=== PATIENT | male | born 1995 | race Caucasian/White ===

== ENCOUNTER 2016-11-15 20:16 | Emergency (ER) | payer SELFPAY ==
[~2016-11-15] VITALS: Ht 185.4 cm; Wt 70.0 kg
[~2016-11-15 20:16] MED LIST: ADDE10 PO; ADDE20 PO; PROP20TA3 PO
[2016-11-15 20:28] VITALS: BP 146/98; PULSE 88; RESP 16; TEMP 98; O2SAT 98
[2016-11-15 23:15] VITALS: BP 142/68; PULSE 75; RESP 18; TEMP 97.5; O2SAT 100
--- NOTE | 2016-11-15 23:34 | PD ---
HPI Chief Complaint: Psychiatric Symptoms Time Seen by Provider: 22:45 Travel History International Travel<30 days: No Contact w/Intl Traveler<30days: No History of Present Illness HPI Pleasant 20-year-old male arrives with several nonspecific neurologic and/or psychiatric complaints and demonstrates concern for having suffered a stroke. The patient suddenly had difficulty speaking well giving a presentation before students in a class. Yesterday he tried to complete the assignment and "couldn' t think." He also reports numbness about the nose. He states he is in the high stress environment right now experiencing some bullying in college. He is a senior at in [address]. His plans after graduation or indeterminate at this time. He has been taking albuterol 20 mg extended release and increased his dose to 10 mg extra in the afternoons lately. He had been taking benzodiazepines intermittently until 2 weeks prior. He takes propranolol for hypertension. Past medical history includes panic disorder, ADHD and major depressive disorder. He denies binge drinking however reports occasional alcohol consumption. He reports occasional marijuana use. He's had no loss of consciousness. He's had no focal neurologic deficit. He has no headache. PFSH Past Medical History ADHD: Yes Asthma: Yes (CHILDHOOD) Depression: Yes Diminished Hearing: No Hypertension: Yes Immunizations Current: Yes Social History Alcohol Use: No Tobacco Use: No Substance Use: Yes (MARIJUANA "2XWEEK") Allergies-Medications (Allergen,Severity, Reaction): Coded Allergies: Cephalosporins (Verified Allergy, Severe, 09/19/16) Reported Meds & Prescriptions Reported Meds & Active Scripts Active Adderall (Amphetamine-Dextroamphetamine) 20 Mg Tab 20 Mg PO QAM,1/2Q4PM disp; jan 11 2017 Avoid late evening doses. Space doses at least 4 to 6 hours if more than once/day dosing. Adderall (Amphetamine-Dextroamphetamine) 20 Mg Tab 20 Mg PO QAM,1/2Q4PM disp; december 12 2016 Avoid late evening doses. Space doses at least 4 to 6 hours if more than once/day dosing. Adderall (Amphetamine-Dextroamphetamine) 20 Mg Tab 20 Mg PO DAILY dsip; 10/19/2016 Avoid late evening doses. Space doses at least 4 to 6 hours if more than once/day dosing. Adderall (Amphetamine-Dextroamphetamine) 20 Mg Tab 20 Mg PO QAM,1/2Q4PM disp; 11/11/2016 Avoid late evening doses. Space doses at least 4 to 6 hours if more than once/day dosing. Adderall (Amphetamine-Dextroamphetamine) 20 Mg Tab 20 Mg PO QAM,1/2Q4PM Avoid late evening doses. Space doses at least 4 to 6 hours if more than once/day dosing. Propranolol (Propranolol HCl) 20 Mg Tab 20 Mg PO QID Reported Adderall (Amphetamine-Dextroamphetamine) 10 Mg Tab 10 Mg PO DIRECTED Take 10 mg in the morning & 5 mg (1/2 tab) at noon. Review of Systems Except as stated in HPI: all other systems reviewed are Neg General / Constitutional: No: Fever, Chills Neurologic: Positive: Paresthesia Physical Exam Narrative GENERAL: 20 yo M, WNWD, pleasant SKIN: Warm and dry. HEAD: Atraumatic. Normocephalic. EYES: Pupils equal and round. No scleral icterus. No injection or drainage. ENT: No nasal bleeding or discharge. Mucous membranes pink and moist. NECK: Trachea midline. No JVD. CARDIOVASCULAR: Regular rate and rhythm. RESPIRATORY: No accessory muscle use. Clear to auscultation. Breath sounds equal bilaterally. GASTROINTESTINAL: Abdomen soft, non-tender, nondistended. Hepatic and splenic margins not palpable. MUSCULOSKELETAL: Extremities without clubbing, cyanosis, or edema. No obvious deformities. NEUROLOGICAL: CN II-XII normal. AOx3. Can perform serial 7 subtractions. Cerebellar function normal. PSYCHIATRIC: No HI/SI. No hallucination. Data Data Last Documented VS Vital Signs Date Time Temp Pulse Resp B/P Pulse Ox O2 Delivery O2 Flow Rate FiO2 11/15/16 20:28 98.0 88 16 146/98 98 VS reviewed [facility] Medical Decision Making Medical Screen Exam Complete: Yes Emergency Medical Condition: Yes Medical Record Reviewed: Yes Differential Diagnosis Altered mental status/psychosis due to infection/environmental exposure/ metabolic abnormality, polypharmacy, alcohol abuse/intoxication, illicit or prescribed drug abuse, malingering/secondary gain, non-organic psychiatric disease Narrative Course The patient in summary is a pleasant 20-year-old male who is finishing college and reports severe personal stress. He has no homicidal or suicidal ideation. He has been doing some research into possible etiologies for his various nonspecific complaints. He responded very well to reassurance here. His complaints are not consistent with a specific disease process. His neurologic exam is normal. He has psychiatry follow-up. He has an excellent social support network with his family. He also is active with soccer and boxing. He eats well. Overall he is likely experiencing anxiety 2/2 environmental stressors. Blood work was performed at [facility] in [address] and was normal within last two days. It is doubtful any diagnostic intervention would aid in helping the patient today. He is ready for discharge. Diagnosis Primary Impression: Stress Referrals: Zandra Alamo MD 2 days Additional Instructions: You have a choice when it comes to health care, and we are glad that you chose [facility]. Hopefully, we have met your expectations on today's visit. You are welcome to return to [facility] at any time, as we are committed to meeting the health care needs of our community. Med/Other Pt SpecificInfo: No Change to Meds Disposition: 01 DISCHARGE HOME Condition: Stable Christian Robledo MD Nov 15, 2016 23:34
[2016-11-19] MEDS ORDERED: PROP20TA3 PO (11:05)
[2017-01-23] MEDS ORDERED: ALPR.5 PO (15:48)
[2017-01-23] MEDS ORDERED: PROP20TA3 PO ×2 (15:48→16:54)
[2017-01-23] MEDS ORDERED: SERO100T PO ×3 (15:48→17:04)
[2017-02-21] MEDS ORDERED: ALPR.5 PO ×2 (11:39→11:51)
[2017-02-21] MEDS ORDERED: SERO100T PO (11:39)
[2017-02-21] MEDS ORDERED: PROP20TA3 PO (11:39)
== END 2016-11-16 00:07 | disposition home or self-care (01) ==
LOC: PHED 20:16
DX: F43.9 Reaction to severe stress, unspecified (principal); I10 Essential (primary) hypertension; F41.8 Other specified anxiety disorders
CPT/HCPCS: 99283

== ENCOUNTER 2017-01-02 10:26 | Inpatient (IN) | payer OTHER ==
[~2017-01-02] VITALS: Ht 185.4 cm; Wt 71.5 kg
[~2017-01-02 10:26] MED LIST changes: -ADDE10 PO
[2017-01-02 10:28] VITALS: BP 154/93; PULSE 95; RESP 15; TEMP 97.9; O2SAT 99
[2017-01-02 10:53] VITALS: BP 162/91; PULSE 90; RESP 20; O2SAT 100
--- NOTE | 2017-01-02 11:22 | PD ---
HPI Chief Complaint: Neuro Symptoms/ Deficits Time Seen by Provider: 11:00 Travel History International Travel<30 days: No Contact w/Intl Traveler<30days: No Traveled to known affect area: No History of Present Illness HPI Patient comes in complaining of a strange sensation bilateral lower extremities ongoing since October of this year. He feels a tightness in his legs. Patient also reports symptoms seems to be affecting his thought process and speech from time to time. Patient states this is affecting his gait causing him to skip at time. Patient states he was seen at [facility] for similar in October of this year. Patient's mother reports that he is seen by a psychiatrist in [place] as well for this. Patient feels as symptoms are getting worse and no one has been able to tell him what is going on. Patient reports he was self-medicating with what he thought was Xanax that was not prescribed to him with some improvement of symptoms. Denies any chest pain or shortness breath, fevers, abdominal pain , or headaches. PFSH Past Medical History ADHD: Yes Asthma: Yes (CHILDHOOD) Anxiety: Yes (panic attacks, agoraphobia) Depression: Yes Heart Rhythm Problems: Yes (not diag per pt "he feels it") Diminished Hearing: No Headaches: Yes (started since october) Hypertension: Yes (on meds) Medical other: Yes (fell at 3yrs old had a staple in head once) Psychiatric: Yes (Panic disorder, Major Depressive Disorder) Immunizations Current: Yes Tetanus Vaccination: Never Vaccinated Influenza Vaccination: No Social History Alcohol Use: Yes (Occasionally) Tobacco Use: No Substance Use: Yes (MARIJUANA "often" last time 01/01/17) Allergies-Medications (Allergen,Severity, Reaction): Coded Allergies: Cephalosporins (Verified Allergy, Severe, 01/02/17) Reported Meds & Prescriptions Reported Meds & Active Scripts Active Propranolol (Propranolol HCl) 20 Mg Tab 20 Mg PO QID Adderall (Amphetamine-Dextroamphetamine) 20 Mg Tab 20 Mg PO QAM,2Q4PM disp; jan 11 2017 Avoid late evening doses. Space doses at least 4 to 6 hours if more than once/day dosing. Review of Systems Except as stated in HPI: all other systems reviewed are Neg Physical Exam Narrative GENERAL: Well-developed, well nourished, in no acute distress, and non-ill appearing. SKIN: Focused skin assessment warm and dry. HEAD: Atraumatic. Normocephalic. EYES: Pupils equal and round. EOMI. No scleral icterus. No injection or drainage. ENT: No nasal bleeding or discharge. Mucous membranes pink and moist. NECK: Trachea midline. No JVD. Supple. No nuclear rigidity. CARDIOVASCULAR: Regular rate and rhythm. No murmur appreciated. RESPIRATORY: No accessory muscle use. No respiratory distress. Clear to auscultation. Breath sounds equal bilaterally. GASTROINTESTINAL: Abdomen soft, non-tender, nondistended. Hepatic and splenic margins not palpable. Normal bowel sounds 4. No pulsatile mass. MUSCULOSKELETAL: No obvious deformities. No clubbing. No cyanosis. No edema. Full range of motion. Hip: FROM and equal BL with passive flexion, extension, Abduction, Adduction, and internal/external rotation. Pulses equal BL distal to injury. Capillary refill less than 2 seconds distal to injury and equal BL. FROM distal to injury and equal BL. Strength distal to injury equal BL. NV intact distal to injury and equal BL. Plantar flexion and dorsal flexion equal BL. Dorsal pulses equal BL. Sensation equal BL 1st web space. Negative Homans sign. NEUROLOGICAL: Awake and alert. No obvious cranial nerve deficits. Motor grossly within normal limits. Normal speech. PSYCHIATRIC: Appropriate mood and affect; insight and judgment normal. Data Data Last Documented VS Vital Signs Date Time Temp Pulse Resp B/P Pulse Ox O2 Delivery O2 Flow Rate FiO2 01/02/17 12:41 76 20 151/77 99 Room Air 01/02/17 10:28 97.9 Orders Complete Blood Count With Diff (01/02/17 11:12) Comprehensive Metabolic Panel (01/02/17 11:12) Urinalysis - C+S If Indicated (01/02/17 11:12) Drug Screen, Random Urine (01/02/17 11:12) Alcohol (Ethanol) (01/02/17 11:12) Creatine Kinase (Cpk) (01/02/17 11:12) Psych Screen (01/02/17 11:12) Ct Brain W/O Iv Contrast(Rout) (01/02/17 ) Sodium Chlor 0.9% 1000 Ml Inj (Ns 1000 M (01/02/17 11:45) Labs Laboratory Tests Test 01/02/17 01/02/17 11:29 12:16 White Blood Count 7.8 TH/MM3 Red Blood Count 5.55 MIL/MM3 Hemoglobin 15.9 GM/DL Hematocrit 46.5 % Mean Corpuscular Volume 83.7 FL Mean Corpuscular Hemoglobin 28.7 PG Mean Corpuscular Hemoglobin 34.2 % Concent Red Cell Distribution Width 12.6 % Platelet Count 323 TH/MM3 Mean Platelet Volume 6.8 FL Neutrophils (%) (Auto) 67.4 % Lymphocytes (%) (Auto) 23.5 % Monocytes (%) (Auto) 7.3 % Eosinophils (%) (Auto) 0.8 % Basophils (%) (Auto) 1.0 % Neutrophils # (Auto) 5.2 TH/MM3 Lymphocytes # (Auto) 1.8 TH/MM3 Monocytes # (Auto) 0.6 TH/MM3 Eosinophils # (Auto) 0.1 TH/MM3 Basophils # (Auto) 0.1 TH/MM3 CBC Comment DIFF FINAL Differential Comment Sodium Level 139 MEQ/L Potassium Level 4.1 MEQ/L Chloride Level 104 MEQ/L Carbon Dioxide Level 31.2 MEQ/L Anion Gap 4 MEQ/L Blood Urea Nitrogen 9 MG/DL Creatinine 0.89 MG/DL Estimat Glomerular Filtration 107 ML/MIN Rate Random Glucose 112 MG/DL Calcium Level 8.8 MG/DL Total Bilirubin 0.8 MG/DL Aspartate Amino Transf 16 U/L (AST/SGOT) Alanine Aminotransferase 20 U/L (ALT/SGPT) Alkaline Phosphatase 84 U/L Total Creatine Kinase 144 U/L Total Protein 7.3 GM/DL Albumin 4.0 GM/DL Ethyl Alcohol Level LESS THAN 3 MG/DL Urine Color YELLOW Urine Turbidity CLOUDY Urine pH 7.5 Urine Specific [place] 1.019 Urine Protein TRACE mg/dL Urine Glucose (UA) NEG mg/dL Urine Ketones NEG mg/dL Urine Occult Blood NEG Urine Nitrite NEG Urine Bilirubin NEG Urine Urobilinogen LESS THAN 2.0 MG/DL Urine Leukocyte Esterase NEG Urine Amorphous Sediment OCC Urine Bacteria OCC /hpf Microscopic Urinalysis Comment CULT NOT INDICATED Urine Opiates Screen NEG Urine Barbiturates Screen NEG Urine Amphetamines Screen NEG Urine Benzodiazepines Screen NEG Urine Cocaine Screen NEG Urine Cannabinoids Screen POS MDM Medical Decision Making Medical Screen Exam Complete: Yes Emergency Medical Condition: Yes Differential Diagnosis Electrolyte abnormality, rhabdomyolysis, kidney insufficiency, dehydration, tumor, other Narrative Course Patient was seen and examined. Labs were obtained and reviewed. Discussed patient with Dr. Rogers, who saw and evaluated the patient. Patient was offered psychiatric evaluation and is agreeable to this. Patient medically cleared for further treatment and evaluation by psych. Final disposition per psych. Patient was evaluated by psych screener given resource packet. Psychiatrist is currently on the property at this time and patient does not want to stay in for further evaluation. Patient is not homicidal or suicidal. Patient stable for discharge and outpatient follow-up. Discussed this patient with Dr. Rogers, who is in agreement with plan of care and disposition. 1430 prior to being discharged patient is now willing to stay voluntarily for further psychiatric evaluation. I discussed this with locomotive driver Bernardino kirkland patient initially. Patient will be transferred to [facility] for further treatment and evaluation. Final disposition per psych. Diagnosis Primary Impression: Leg pain Qualified Code: M79.604 - Pain in both lower extremities Additional Instructions: Follow-up with your primary care physician this week for further evaluation and possible neurology referral. Return to the emergency department if symptoms get worse. Condition: Stable Viral Anne January 02, 2017 11:22
[2017-01-02 11:44] LABS: AUTOMATED NEUTROPHIL # 5.2 TH/MM3 (1.8-7.7); BASOPHIL # 0.1 TH/MM3 (0-0.2); EOSINOPHIL # 0.1 TH/MM3 (0-0.4); EOSINOPHIL % 0.8 % (0.0-4.0); HEMATOCRIT 46.5 % (39.0-51.0); HEMO FLAGS DIFF FINAL; LYMPH % 23.5 % (9.0-44.0); LYMPHOCYTE # 1.8 TH/MM3 (1.0-4.8); MEAN CELL VOLUME 83.7 FL (80.0-100.0); MEAN CORPUSCULAR HEMOGLOBIN 28.7 PG (27.0-34.0); MEAN CORPUSCULAR HGB CONC 34.2 % (32.0-36.0); MONO % 7.3 % (0.0-8.0); NEUT % 67.4 % (16.0-70.0); PLATELET COUNT 323 TH/MM3 (150-450); RED BLOOD COUNT 5.55 MIL/MM3 (4.50-5.90); RED CELL DISTRIBUTION WIDTH 12.6 % (11.6-17.2); WHITE BLOOD COUNT 7.8 TH/MM3 (4.0-11.0)
[2017-01-02] MEDS ORDERED: SODIUM CHLOR 0.9% 1000 ML INJ 1,000 ML IV ONE (11:45)
--- NOTE | 2017-01-02 12:01 | RADRPT ---
EXAM DATE/TIME: 01/02/2017 11:43 [facility] COMPARISON: No previous studies available for comparison. INDICATIONS : Difficulty speaking, bilateral lower extremity weakness. RADIATION DOSE: 56.37 CTDIvol (mGy) MEDICAL HISTORY : Hypertension. SURGICAL HISTORY : None. ENCOUNTER: Initial ACUITY: 2 months PAIN SCALE: 0/10 LOCATION: cranial TECHNIQUE: Multiple contiguous axial images were obtained of the head. Using automated exposure control and adj ustment of the mA and/or kV according to patient size, radiation dose was kept as low as reasonably a chievable to obtain optimal diagnostic quality images. FINDINGS: CEREBRUM: The ventricles are normal for age. No evidence of midline shift, mass lesion, hemorrhage or acute in farction. No extra-axial fluid collections are seen. POSTERIOR FOSSA: The cerebellum and brainstem are intact. The 4th ventricle is midline. The cerebellopontine angle i s unremarkable. EXTRACRANIAL: The visualized portion of the orbits is intact. SKULL: The calvaria is intact. No evidence of skull fracture. CONCLUSION: No acute disease. Lm Lewis MD on January 02, 2017 at 11:59 Board Certified Radiologist. This report was verified electronically.
[2017-01-02 12:04] LABS: ALT (GPT) 20 U/L (12-78); ANION GAP 4 MEQ/L (5-15); AST (GOT) 16 U/L (15-37); BICARBONATE 31.2 MEQ/L (21.0-32.0); BLOOD UREA NITROGEN 9 MG/DL (7-18); CHLORIDE 104 MEQ/L (98-107); GLOMERULAR FILTRATION RATE 107 ML/MIN (>89); POTASSIUM 4.1 MEQ/L (3.5-5.1); SODIUM (NA) 139 MEQ/L (136-145)
[2017-01-02 12:06] LABS: ALKALINE PHOSPHATASE 84 U/L (45-117); CREATINE KINASE 144 U/L (39-308); TOTAL BILIRUBIN ADULT 0.8 MG/DL (0.2-1.0)
[2017-01-02 12:41] VITALS: BP 151/77; PULSE 76; RESP 20; O2SAT 99
[2017-01-02 12:49] LABS: BACTERIA, URINE OCC /hpf; BLOOD, URINE NEG (NEG); COMMENT (UR) CULT NOT INDICATED; CULTURE IF INDICATED CULT NOT INDICATED; GLUCOSE,URINE NEG (NEG); KETONE, URINE NEG (NEG); NITRITE,URINE NEG (NEG); PH, URINE 7.5 (5.0-8.5); URINE COLOR YELLOW (YELLW/STRAW)
[2017-01-02 12:56] LABS: AMPHETAMINE, URINE NEG (NEG); BARBITURATES, URINE NEG (NEG); COCAINE, URINE NEG (NEG)
[2017-01-02 15:24] VITALS: BP 150/80; PULSE 79; RESP 18; O2SAT 99
[2017-01-02 18:06] VITALS: BP 160/82; PULSE 72; RESP 19; O2SAT 99
[2017-01-03 02:05] VITALS: BP 155/95; PULSE 101; RESP 18; O2SAT 98
[2017-01-03 06:00] VITALS: BP 165/93; PULSE 141; RESP 16; O2SAT 100
--- NOTE | 2017-01-03 09:42 | PD ---
History of Present Illness Chief Complaint: Neuro Symptoms/ Deficits Time Seen by Provider: 09:15 Travel History International Travel<30 Days: No Contact w/Intl Traveler<30days: No Known affected area: No Legal Status Legal Status: Voluntary History of Present Illness: History of Present Illness HPI Patient is a 21 year old male with hx of ADHD who comes in for evaluation of a strange sensation bilateral lower extremities ongoing since October of this year. ED documentation is included in this report : " He feels a tightness in his legs. Patient also reports symptoms seems to be affecting his thought process and speech from time to time. Patient states this is affecting his gait causing him to skip at time. Patient states he was seen at [facility] for similar in October of this year. Patient's mother reports that he is seen by a psychiatrist in [place] as well for this. Patient feels as symptoms are getting worse and no one has been able to tell him what is going on. Patient reports he was self-medicating with what he thought was Xanax that was not prescribed to him with some improvement of symptoms. Denies any chest pain or shortness breath, fevers, abdominal pain, or headaches. Seen. Record reviewed. Previous visit with Dr. Wallace in 2012 and has been taking Adderall up until December 2016. Has also been treated with Xanax on prn Current toxicology is negative except for cannabinoids. Telephone call to his mother, Lauren [phone] w patient's consent. She reports that in November 14 he came home from [facility] and she reports the following ; He believed that there was a doctor in civilian clothes that was trying to sell him drugs, believes that Dr. Wallace violated his confidentiality and provided his medical information to other students at the [employer], that his house was being bugged as well, that his girlfriend was wearing special lenses that could spy on him, he became suspicious of and women as he believed they were somehow connected to Dr. Wallace. He was evaluated by [place] at Dr. Yun office on December 30, 2016. Patient is seen in [facility]. Awake, alert male that appears stated age. He is initially guarded and focuses on neurological issues such as his speech and his gait which at this time are not impaired. He does report that he believes that he is being targeted by other students including his girlfriend " who is sending me doctor's bills and cooked me a chicken that she then took away and I found that suspicious". He has been afraid to leave his home at this point. Sleeping poorly due to feeling anxious, fair appetite and decreased level of energy. He reports decreased concentration. Denies hallucinations. Denies suicidal or homicidal ideation, intent or plan. Mood is anxious. PFSH Past Medical History ADHD: Yes Asthma: Yes (CHILDHOOD) Anxiety: Yes (panic attacks, agoraphobia) Depression: Yes Heart Rhythm Problems: Yes (not diag per pt "he feels it") Diminished Hearing: No Headaches: Yes (started since october) Hypertension: Yes (on meds) Medical other: Yes (fell at 3yrs old had a staple in head once) Psychiatric: Yes (Panic disorder, Major Depressive Disorder) Immunizations Current: Yes Tetanus Vaccination: Never Vaccinated Influenza Vaccination: No Psychiatric History Psychiatric History Hx Psychiatric Treatment: HX of HBS in 2012 History of Inpatient Treatment: No Guns or firearms in home: No Social History Single male. Student at [employer] in his senior year. Never . Currently living with his mother. Hx Alcohol Use: Yes (Occasionally) Hx Tobacco Use: No Hx Substance Use: Yes Substance Use Type: Marijuana Other Substances Used: Pt had been buying what he thought were xanax but thinks it was counterfiet Hx of Substance Use Treatment: No Family Psychiatric History Maternal grandmothe with bipolar disorder Allergies-Medications (Allergen,Severity, Reaction): Coded Allergies: Cephalosporins (Verified Allergy, Severe, 01/02/17) Reported Meds & Prescriptions Reported Meds & Active Scripts Active Propranolol (Propranolol HCl) 20 Mg Tab 20 Mg PO QID Adderall (Amphetamine-Dextroamphetamine) 20 Mg Tab 20 Mg PO QAM,1/2Q4PM disp; jan 11 2017 Avoid late evening doses. Space doses at least 4 to 6 hours if more than once/day dosing. Review of Systems Except as stated in HPI: all other systems reviewed are Neg Psychiatric: COMPLAINS OF: Anxiety Exam Alert: Yes [place]: Person (ox4 ) Mood: Anxious Affect: Tearful Speech: Clear Eye Contact: Normal Memory Intact: Comment (not impaired. ) Hallucinations: Other (denies any) Delusions: Yes Delusion Type: Paranoid Suicidal: Ideation (deneis any) Homicidal: Ideation (deneis any) MDM Medical Decision Making Medical Record Reviewed: Yes Assessment/Plan 21 year old male with previous hx of ADHD who presents to Ed on a voluntary basis for evaluation of complaints of impaired gait, tingling in extremities, slurred speech at times. He has been evaluated by ed including CT scan with negative findings. He presents with paranoid thoughts, anxiety and inability to function secondary to paranoia. He has dropped out of school at this time. At this time inpatient psychiatric treatment is recommended for further evaluation. Orders Complete Blood Count With Diff (01/02/17 11:12) Comprehensive Metabolic Panel (01/02/17 11:12) Urinalysis - C+S If Indicated (01/02/17 11:12) Drug Screen, Random Urine (01/02/17 11:12) Alcohol (Ethanol) (01/02/17 11:12) Creatine Kinase (Cpk) (01/02/17 11:12) Psych Screen (01/02/17 11:12) Ct Brain W/O Iv Contrast(Rout) (01/02/17 ) Sodium Chlor 0.9% 1000 Ml Inj (Ns 1000 M (01/02/17 11:45) Diet Regular Basic (01/02/17 Dinner) Diet Regular Basic (01/03/17 Breakfast) Results Vital Signs Date Time Temp Pulse Resp B/P Pulse Ox O2 Delivery O2 Flow Rate FiO2 01/03/17 06:00 141 16 165/93 100 Nasal Cannula 01/03/17 02:05 101 18 155/95 98 Room Air 01/02/17 18:06 72 19 160/82 99 Room Air 01/02/17 15:24 79 18 150/80 99 Room Air 01/02/17 12:41 76 20 151/77 99 Room Air 01/02/17 10:53 90 20 162/91 100 Room Air 01/02/17 10:28 97.9 95 15 154/93 99 Laboratory Tests Test 01/02/17 01/02/17 11:29 12:16 White Blood Count 7.8 Red Blood Count 5.55 Hemoglobin 15.9 Hematocrit 46.5 Mean Corpuscular Volume 83.7 Mean Corpuscular Hemoglobin 28.7 Mean Corpuscular Hemoglobin 34.2 Concent Red Cell Distribution Width 12.6 Platelet Count 323 Mean Platelet Volume 6.8 Neutrophils (%) (Auto) 67.4 Lymphocytes (%) (Auto) 23.5 Monocytes (%) (Auto) 7.3 Eosinophils (%) (Auto) 0.8 Basophils (%) (Auto) 1.0 Neutrophils # (Auto) 5.2 Lymphocytes # (Auto) 1.8 Monocytes # (Auto) 0.6 Eosinophils # (Auto) 0.1 Basophils # (Auto) 0.1 CBC Comment DIFF FINAL Differential Comment Sodium Level 139 Potassium Level 4.1 Chloride Level 104 Carbon Dioxide Level 31.2 Anion Gap 4 Blood Urea Nitrogen 9 Creatinine 0.89 Estimat Glomerular Filtration 107 Rate Random Glucose 112 Calcium Level 8.8 Total Bilirubin 0.8 Aspartate Amino Transf 16 (AST/SGOT) Alanine Aminotransferase 20 (ALT/SGPT) Alkaline Phosphatase 84 Total Creatine Kinase 144 Total Protein 7.3 Albumin 4.0 Ethyl Alcohol Level LESS THAN 3 Urine Color YELLOW Urine Turbidity CLOUDY Urine pH 7.5 Urine Specific [place] 1.019 Urine Protein TRACE Urine Glucose (UA) NEG Urine Ketones NEG Urine Occult Blood NEG Urine Nitrite NEG Urine Bilirubin NEG Urine Urobilinogen LESS THAN 2.0 Urine Leukocyte Esterase NEG Urine Amorphous Sediment OCC Urine Bacteria OCC Microscopic Urinalysis Comment CULT NOT INDICATED Urine Opiates Screen NEG Urine Barbiturates Screen NEG Urine Amphetamines Screen NEG Urine Benzodiazepines Screen NEG Urine Cocaine Screen NEG Urine Cannabinoids Screen POS Diagnosis Primary Impression: ADHD (attention deficit hyperactivity disorder) Additional Impressions: Adjustment disorder with anxiety Other psychotic disorder not due to a substance or known physiological condition Admitting Information Admitting Physician Requests: Admit (Dr. yepez) Departure Forms: Tests/Procedures Patient Instructions: General Instructions Additional Instructions: Follow-up with your primary care physician this week for further evaluation and possible neurology referral. Return to the emergency department if symptoms get worse. Condition: Stable Problem Qualifiers Primary Impression: ADHD (attention deficit hyperactivity disorder) Qualified Code: F90.9 - Attention deficit hyperactivity disorder (ADHD), unspecified ADHD type Cheryl Castro January 03, 2017 09:42
[2017-01-03] MEDS ORDERED: MAGNESIUM HYDROXIDE SUSP 30 ML CUP PO PRN (10:15)
[2017-01-03] MEDS ORDERED: ACETAMINOPHEN 325 MG TAB PO PRN (10:15)
[2017-01-03 10:29] VITALS: BP 161/76; PULSE 109; RESP 18; O2SAT 98
[2017-01-03 10:30] VITALS: BP 161/76; PULSE 109; RESP 18; O2SAT 98
[2017-01-03 11:11] VITALS: BP 171/97; PULSE 91; RESP 18; TEMP 97.7; O2SAT 98
[2017-01-03 19:30] VITALS: BP 142/84; PULSE 88; RESP 16
[2017-01-04 06:06] VITALS: BP_SYST 148; BP_SYST 149; BP_DIAS 86; BP_DIAS 97; PULSE 99; RESP 18; TEMP 95.9; O2SAT 98
[2017-01-04 10:09] LABS: ANION GAP 8 MEQ/L (5-15); BLOOD UREA NITROGEN 11 MG/DL (7-18); CHLORIDE 101 MEQ/L (98-107); GLOMERULAR FILTRATION RATE 103 ML/MIN (>89); HDL CHOLESTEROL 52.7 MG/DL (40.0-60.0); LDL CHOLESTEROL 101 MG/DL (0-99); POTASSIUM 3.8 MEQ/L (3.5-5.1); SODIUM (NA) 140 MEQ/L (136-145)
[2017-01-04 12:08] LABS: HEMOGLOBIN A1a 1.1 %; HEMOGLOBIN A1b 1.6 %; HEMOGLOBIN Ao 85.8 %; HEMOGLOBIN LA1C 2.1 %; HEMOGLOBIN P3 3.8 %
--- NOTE | 2017-01-04 13:04 | HHI.HP ---
Provisional Diagnosis Admission Date January 03, 2017 at 10:11 [place] I. Schizophrenia, chronic paranoid type. Certification of Person's Competence To Provide Express and Informed Consent I have personally examined Segundo Coffey , a person being served at [facility] on, January 04, 2017 12:55. Express and informed consent means consent voluntarily given in writing, by a competent person, after sufficient explanation and disclosure of the subject matter involved to enable the person to make a knowing and willful decision without any element of force, fraud, deceit, duress, or other form of constraint or coercion. This person is 18 years of age or older, is not now known to be incompetent to consent to treatment with a guardian advocate, and does not have a health care surrogate or proxy currently making medical treatment decisions. I have found this person to be one of the following: [X] Competent to provide express and informed consent, as defined above, for voluntary admission to this facility and is competent to provide express and informed consent for treatment. He/she has the consistent capacity to make well reasoned, willful, and knowing decisions concerning his or her medical or mental health treatment. The person fully and consistently understands the purpose of the admission for examination/placement and is fully capable of personally exercising all rights assured [place] Incompetent to provide express and informed consent to voluntary admission, and this is incompetent to provide express and informed consent to treatment. The person must be transferred to involuntary status and a petition for a guardian advocate filed with the Circuit Court. [] Refusing to provide express and informed consent to voluntary admission but is competent to provide express and informed consent for treatment. The person must be discharged or transferred to involuntary status. Form shall be completed within 24 hours of a person's arrival at the receiving facility and filed in the clinical record of each person: 1. Admitted on a voluntary basis 2. Permitted to provide express and informed consent to his/her own treatment 3. Allowed to transfer from involuntary to voluntary status 4. Prior to permitting a person to consent to his or her own treatment after having been previously found incompetent to consent to treatment. History of Present Illness Capacity: Has Capacity HPI This is a 21-year-old male who presented voluntarily for admitted problems with delusional thinking and paranoia. The patient describes a six-month history of these symptoms including feeling like his laundry and his marijuana have been poisoned. He has auditory hallucinations as well as tactile hallucinations, feeling his lower extremities are infested with something. He has posted Star Wars items on the Internet but states "I'm not that vindictive" in response to the question of why. He repeatedly states "people follow up with me". And he apparently dropped out of school because he could no longer tolerate it, even though he was 9 credits for graduation. He states that his peers would sit next to him as a way of persecuting him. Patient has very limited insight with regard to his illness but looks everything up on computers and smart phones. He would like to discuss psychopharmacology because he has been taking propranolol, Effexor and Adderall. This physician informed him the Adderall is most likely bad for him at this point and this physician wants to start Abilify. Review of Systems ROS Limitations: Psychotic Past Psych History Psychological trauma history Denied Violence risk - others (6 mos) Minimal Violence risk - self (6 mos) Moderate Substance Abuse History Drugs/Alcohol past 12 months Reports smoking marijuana as a manner of self-medicating. Past Family Social History Coded Allergies: Cephalosporins (Verified Allergy, Severe, 01/02/17) Active Scripts Propranolol 20 Mg Tab20 Mg PO QID #120 TAB Ref 0 Prov:Zandra Alamo MD 11/19/16 Amphetamine-Dextroamphetamine (Adderall)20 Mg Tab20 Mg PO qam,09/03q4pm #45 TAB Ref 0 disp; jan 11 2017 Avoid late evening doses. Space doses at least 4 to 6 hours if more than once/day dosing. Prov:Zandra Alamo MD 09/19/16 Current Medications Medications (Trade) Dose Ordered Sig/Ambika Route Start Time Stop Time Status Last Admin (Tylenol) 650 mg Q4H PRN PO 01/03/17 10:15 (Milk Of Magnesia Liq) 30 ml DAILY PRN PO 01/03/17 10:15 (Mag-Al Plus Susp Liq) 30 ml Q6H PRN PO 01/03/17 10:15 Family History Unknown but patient gave permission for this physician to speak with his mother. Social History Unemployed. Has recently smoked marijuana. Not . Has no children. Living with his mother. Patient's Strengths (min. 2) Verbal and resilient. Physical Exam GENERAL: SKIN: Warm and dry. HEAD: Normocephalic. EYES: No scleral icterus. No injection or drainage. NECK: Supple, trachea midline. No JVD or lymphadenopathy. CARDIOVASCULAR: Regular rate and rhythm without murmurs, gallops, or rubs. RESPIRATORY: Breath sounds equal bilaterally. No accessory muscle use. GASTROINTESTINAL: Abdomen soft, non-tender, nondistended. MUSCULOSKELETAL: No cyanosis, or edema. BACK: Nontender without obvious deformity. No CVA tenderness. Vital Signs Vital Signs Date Time Temp Pulse Resp B/P Pulse Ox O2 Delivery O2 Flow Rate FiO2 01/04/17 06:06 95.9 99 18 149/97 98 148/86 01/03/17 10:30 Room Air Mental Status Examination Speech: Hesitant Orientation: x3 Memory: Unremarkable Thought Process: Circumstantial, Loose Association Thought Content: Bizarre thinking, Paranoid Hallucination Type: Auditory Attention and Concentration: Abnormal Suicidal Ideation: No Previous Suicide Attempts: No Homicidal Ideation: No Previous Homicide Attempts: No Insight: Fair, Poor Judgment: Unrealistic Affect: Anxious Affect if Inappropriate: Blunt Mood: Anxious Motor Activity: Normal gait Assessment & Plan Problem List: (1) Paranoid type schizophrenia, chronic state ICD Code: F20.0 Assessment & Plan Estimated LOS: 7 days patient has a 6+ month history of psychotic symptoms including paranoid delusions that he is being persecuted by others, that posting a Star Wars cream on his social media indicates that he is vindictive, that his laundry is being poisoned and that he has auditory hallucinations. This physician reviewed his past medical and psychiatric history which does not include that diagnosis or medicine to treat psychosis. In fact, this physician is discontinuing the stimulant medicine, which is likely to make his paranoia worse. The patient does need a workup including an EKG to ensure that he can tolerate antipsychotic and antidepressant medicines from a cardiac standpoint. He also needs comprehensive metabolic profile because Abilify can cause weight gain. This physician spoke with his nurse regarding his current psychotic symptoms. Image Editor will be asked to speak with his mother guarding his recent and remote history of behavioral problems. Because he is actively psychotic, this physician feels she is at moderate to significant risk for self- harm. Jose Carbajal MD January 04, 2017 13:04
[2017-01-04] MEDS: VENLAFAXINE HCL XR 75 MG CAP PO SCH ×2 (14:00→21:00)
[2017-01-04] MEDS: PROPRANOLOL HCL 10 MG TAB PO SCH ×2 (14:00→21:17)
[2017-01-04 16:48] LABS: AMPHETAMINE, URINE NEG (NEG); BARBITURATES, URINE NEG (NEG); COCAINE, URINE NEG (NEG)
[2017-01-04 18:49] VITALS: BP 148/70; PULSE 83; RESP 18; TEMP 97.9; O2SAT 98
[2017-01-04] MEDS: ARIPiprazole 2 MG TAB PO SCH (21:17)
[2017-01-05] MEDS: ALUMINUM/MAGNESIUM/SIMETH 30 ML CUP PO PRN (00:36)
[2017-01-05 01:34] VITALS: BP 134/76; PULSE 67; RESP 20; TEMP 97.3; O2SAT 98
[2017-01-05 05:49] VITALS: BP 133/81; PULSE 95; RESP 20; TEMP 97.8; O2SAT 98
[2017-01-05] MEDS: PROPRANOLOL HCL 10 MG TAB PO SCH ×3 (05:57→20:51)
[2017-01-05] MEDS: VENLAFAXINE HCL XR 75 MG CAP PO SCH ×2 (08:54→20:52)
[2017-01-05 10:12] LABS: ALKALINE PHOSPHATASE 84 U/L (45-117); ALT (GPT) 17 U/L (12-78); ANION GAP 7 MEQ/L (5-15); AST (GOT) 13 U/L (15-37); BICARBONATE 31.5 MEQ/L (21.0-32.0); BLOOD UREA NITROGEN 13 MG/DL (7-18); CHLORIDE 101 MEQ/L (98-107); GLOMERULAR FILTRATION RATE 108 ML/MIN (>89); POTASSIUM 3.7 MEQ/L (3.5-5.1); SODIUM (NA) 139 MEQ/L (136-145); TOTAL BILIRUBIN ADULT 1.1 MG/DL (0.2-1.0)
--- NOTE | 2017-01-05 15:44 | HHI.PYPN ---
Subjective Remarks Patient was seen and case discussed with nursing. Patient gives a convoluted story about why he did not like his previous psychiatrist. Yesterday's note was reviewed which noted psychotic symptoms which patient denies today. Patient says he has anxiety and is asking for Adderall and Xanax. Psychoeducation done about medications. Denies auditory hallucinations today. Denies persecution today. Affect does not appear anxious. Poor insight into his psychosis Objective Alert: Yes [place]: Person (ox4 ), Place Mood: Anxious Affect: Blunted Memory Intact: Comment (not impaired. ) Hallucinations: Other (denies any) Delusions: No Delusion Type: Paranoid (none elicited) Suicidal: Ideation (deneis any) Homicidal: Ideation (deneis any) Insight/Judgment Poor Labs Test 01/04/17 01/05/17 15:50 08:12 Urine Opiates Screen NEG Urine Barbiturates Screen NEG Urine Amphetamines Screen NEG Urine Benzodiazepines Screen NEG Urine Cocaine Screen NEG Urine Cannabinoids Screen POS Sodium Level 139 MEQ/L Potassium Level 3.7 MEQ/L Chloride Level 101 MEQ/L Carbon Dioxide Level 31.5 MEQ/L Anion Gap 7 MEQ/L Blood Urea Nitrogen 13 MG/DL Creatinine 0.88 MG/DL Estimat Glomerular Filtration 108 ML/MIN Rate Random Glucose 125 MG/DL Calcium Level 9.0 MG/DL Total Bilirubin 1.1 MG/DL Aspartate Amino Transf 13 U/L (AST/SGOT) Alanine Aminotransferase 17 U/L (ALT/SGPT) Alkaline Phosphatase 84 U/L Total Protein 7.3 GM/DL Albumin 4.0 GM/DL Thyroid Stimulating Hormone 1.250 uIU/ML 3rd Gen Vitals/IOs Vital Signs Date Time Temp Pulse Resp B/P Pulse Ox O2 Delivery O2 Flow Rate FiO2 01/05/17 05:49 97.8 95 20 133/81 98 Manual Cuff/Auscultation 01/03/17 10:30 Room Air Assessment & Plan Problem List: (1) Paranoid type schizophrenia, chronic state ICD Code: F20.0 Assessment & Plan Continue current treatment plan Justification for Cont. Inpt. Patient will decompensate in a less restrictive setting Brian Hobbs DO January 05, 2017 15:44
[2017-01-05 18:03] VITALS: BP 138/68; PULSE 72; RESP 18; TEMP 99; O2SAT 99
[2017-01-05] MEDS: ARIPiprazole 2 MG TAB PO SCH (20:50)
--- NOTE | 2017-01-05 21:59 | EKG ---
Date Performed: 01/05/2017 Time Performed: 08:58:20 PTAGE: 21 years EKG: Sinus rhythm NORMAL ECG NO PREVIOUS TRACING DOCTOR: Gema Nelson Interpretating Date/Time 01/05/2017 21:52:30
[2017-01-06] MEDS: PROPRANOLOL HCL 10 MG TAB PO SCH ×3 (06:19→21:18)
[2017-01-06 06:34] VITALS: BP 136/90; PULSE 76; RESP 17; TEMP 98; O2SAT 96
[2017-01-06] MEDS: VENLAFAXINE HCL XR 75 MG CAP PO SCH ×3 (08:53→21:20)
--- NOTE | 2017-01-06 11:14 | HHI.PYPN ---
Subjective Remarks Patient was seen and case discussed with nursing. Told a staff member last night he slept with his previous psychiatrist daughter which resulted in tension between them. He remains perseverant that he has a anxiety and not a psychotic diagnosis. Walks back from some of his psychotic statements with his previous provider. Compliant with medications. Social with others. Denies auditory visual hallucinations. Objective Alert: Yes [place]: Person (ox4 ), Place, Date Mood: Calm Affect: Blunted Memory Intact: Comment (not impaired. ) Hallucinations: Other (denies any) Delusions: No Delusion Type: Paranoid (none elicited) Suicidal: Ideation (deneis any) Homicidal: Ideation (deneis any) Insight/Judgment Poor Vitals/IOs Vital Signs Date Time Temp Pulse Resp B/P Pulse Ox O2 Delivery O2 Flow Rate FiO2 01/06/17 06:34 98.0 76 17 136/90 96 01/03/17 10:30 Room Air Assessment & Plan Problem List: (1) Paranoid type schizophrenia, chronic state ICD Code: F20.0 Assessment & Plan Continue current treatment plan Justification for Cont. Inpt. Patient will decompensate in a less restrictive setting Brian Hobbs DO January 06, 2017 11:14
[2017-01-06] MEDS: ARIPiprazole 2 MG TAB PO SCH (21:00)
[2017-01-06 21:53] VITALS: BP 136/72; PULSE 72; RESP 18; TEMP 98.6; O2SAT 97
[2017-01-07] MEDS: ALUMINUM/MAGNESIUM/SIMETH 30 ML CUP PO PRN (02:54)
[2017-01-07] MEDS: PROPRANOLOL HCL 10 MG TAB PO SCH ×2 (06:07→14:13)
[2017-01-07 06:14] VITALS: BP 144/83; PULSE 89; RESP 16; TEMP 99.3
[2017-01-07] MEDS: VENLAFAXINE HCL XR 75 MG CAP PO SCH (09:06)
--- NOTE | 2017-01-07 14:44 | HHI.DS ---
Psychiatry Discharge Summary Inpatient Psychiatric care?: Yes Advance Directive: No Reason Not Provided: . Mental Health AdvanceDirective: No Health Care Proxy: No Admission Admission Date January 03, 2017 at 10:11 Admission Diagnosis: (1) Paranoid type schizophrenia, chronic state ICD Code: F20.0 Brief History This is a 21-year-old male who presented voluntarily for admitted problems with delusional thinking and paranoia. The patient describes a six-month history of these symptoms including feeling like his laundry and his marijuana have been poisoned. He has auditory hallucinations as well as tactile hallucinations, feeling his lower extremities are infested with something. He has posted [facility] items on the Internet but states "I'm not that vindictive" in response to the question of why. He repeatedly states "people follow up with me". And he apparently dropped out of school because he could no longer tolerate it, even though he was 9 credits for graduation. He states that his peers would sit next to him as a way of persecuting him. Patient has very limited insight with regard to his illness but looks everything up on computers and smart phones. He would like to discuss psychopharmacology because he has been taking propranolol, Effexor and Adderall. This physician informed him the Adderall is most likely bad for him at this point and this physician wants to start Abilify. Tobacco Use In Past 30 Days: No Tobacco Past 30 Days Alcohol Use: Never Hospital Course Patient participated adequately in individual and group therapies. He tolerated antipsychotic medication. No procedures were performed. At the time of discharge the patient was requesting discharge and was not felt to meet [place] act criteria or inpatient psychiatric hospitalization criteria. He also indicated his mother would come and pick him up and taken to her house, indicating he can be assisted adequately by family. Patient wants to go back to school in [place] but this physician does not feel that is a good idea at this time and told him so. Results Blood Pressure 144 / 83 Vital Signs Date Time Temp Pulse Resp B/P Pulse Ox O2 Delivery O2 Flow Rate FiO2 01/07/17 06:14 99.3 89 16 144/83 01/06/17 21:53 97 01/03/17 10:30 Room Air Laboratory Tests Test 01/04/17 01/05/17 15:50 08:12 Urine Cannabinoids Screen POS (NEG) Random Glucose 125 MG/DL (74-106) Total Bilirubin 1.1 MG/DL (0.2-1.0) Aspartate Amino Transf 13 U/L (15-37) (AST/SGOT) Laboratory Results Test 01/04/17 08:50 Hemoglobin A1c 5.2 % (4.3-6.0) Triglycerides Level 106 MG/DL (42-150) Cholesterol Level 175 MG/DL (120-200) LDL Cholesterol 101 MG/DL (0-99) HDL Cholesterol 52.7 MG/DL (40.0-60.0) Summary of Procedures None Imaging Last Impressions Head CT 01/02/17 0000 Signed Impressions: Service Date/Time: Monday, January 02, 2017 11:43 - CONCLUSION: No acute disease. Lm Lewsi MD Pending results at discharge: No Medications # of Antipsychotic meds at D/C: 1 Appropriate >1 Antipsych meds?: 1 Approp Antipsych med options 1 - Minimum of three failed multiple trials of monotherapy. 2 - Documented plan to taper to monotherapy due to previous use of multiple meds OR cross-taper in progress at D/C. 3 - Documentation of augmentation of Clozapine. 4 - Justification other than those listed in allowable values 1-3, document here : Discharge Discharge Date: January 07, 2017 Discharge Diagnosis: (1) Paranoid type schizophrenia, chronic state Diagnosis: Principal ICD Code: F20.0 Mental Status Exam at Disch At the time of discharge the patient remained delusional with paranoid ideation. However he was not suicidal or homicidal or reporting any auditory hallucinations. He was calm and cooperative in his cognition was intact. Pt Condition on Discharge: Stable Discharge Disposition: Discharge Home Discharge Instructions Diet Instructions: As Tolerated, No Restrictions Activities you can perform: Regular-No Restrictions Discharge Time <= 30 minutes Discharge/Advance Care Plan Health Problems: (1) Paranoid type schizophrenia, chronic state Goals to promote your health * To prevent worsening of your condition and complications * To maintain your health at the optimal level Directions to meet your goals Take your medications as prescribed Follow your dietary instruction Follow activity as directed Keep your appointments as scheduled Take your immunizations and boosters as scheduled If your symptoms worsen call your PCP, if no PCP go to Urgent Care Center or Emergency Room For 25/03 questions related to your inpatient stay or results of tests pending at discharge, please contact Dr. Jose Carbajal at Smoking is Dangerous to Your Health. Avoid second hand smoking Jose Carbajal MD January 07, 2017 14:44
[2017-01-07] MEDS ORDERED: PROP10TA6 PO (14:46)
[2017-01-07] MEDS ORDERED: VENL75XR PO (14:46)
[2017-01-07] MEDS ORDERED: ABIL2TAB2 PO (14:46)
[2017-01-23] MEDS ORDERED: ALPR.5 PO (15:48)
[2017-01-23] MEDS ORDERED: SERO100T PO ×3 (15:48→17:04)
[2017-01-23] MEDS ORDERED: PROP20TA3 PO ×2 (15:48→16:54)
[2017-02-21] MEDS ORDERED: PROP20TA3 PO (11:39)
[2017-02-21] MEDS ORDERED: ALPR.5 PO ×2 (11:39→11:51)
[2017-02-21] MEDS ORDERED: SERO100T PO (11:39)
== END 2017-01-07 18:30 | disposition home or self-care (01) | DRG 880 ==
LOC: NEPC 10:26 → NEDA 01-03 10:11 → H260 01-03 11:05
PROVIDERS: ADMIT Psychiatry & Neurology Psychiatry; ATTEND Psychiatry & Neurology Psychiatry
DX: F41.0 Panic disorder [episodic paroxysmal anxiety] (principal); I10 Essential (primary) hypertension; F20.0 Paranoid schizophrenia; F90.9 Attention-deficit hyperactivity disorder, unspecified type; F43.22 Adjustment disorder with anxiety; F12.90 Cannabis use, unspecified, uncomplicated
CPT/HCPCS: 70450; 80048; 80053; 80061; 80307; 81001; 82550; 83036; 84443; 85025; 93005; 96360; J7030